=== PATIENT | male | born 1940 | race Caucasian/White ===

== ENCOUNTER 2019-01-03 10:19 | Emergency (ER) | payer MEDICARE, OTHER ==
[2019-01-03 10:43] VITALS: BMI 31.9
--- NOTE | 2019-01-03 10:49 | PDOC ---
History of Present Illness - General Chief Complaint: Vomiting/Diarrhea Stated Complaint: NAUSEOUS, DIARRHEA Time Seen by Provider: 01/03/19 10:49 History Source: Patient Exam Limitations: No Limitations - History of Present Illness Initial Comments: 01/03/19 11:00 78 year old male with PMH HTN, prediabetes, HLD, kidney stone, prostate CA presented to ED for nausea, vomiting, diarrhea since 1530 yesterday. Pt denied fever, abdominal pain, blood in stool. Pt stated he had 3 episodes of yellow/ clear vomit and 5-7 episodes of loose watery green/brown diarrhea today. Pt stated he is unable to hold down liquids. Pt stated he ate chicken soup for lunch yesterday prior to symptoms developing. Pt denied sick contacts. Allergies: NKDA Past History - Past Medical History Allergies/Adverse Reactions: Allergies Allergy/AdvReac Type Severity Reaction Status Date / Time No Known Allergies Allergy Verified 01/03/19 10:41 Home Medications: Ambulatory Orders Aspirin 81 mg PO DAILY 01/03/19 Cholecalciferol (Vitamin D3) [Vitamin D3] unit PO ASDIR 01/03/19 Glipizide [Glipizide ER] 2.5 mg PO DAILY 01/03/19 Hydrochlorothiazide [Hctz -] 12.5 mg PO DAILY 01/03/19 Olmesartan Medoxomil [Benicar (Nf)] 40 mg PO DAILY 01/03/19 Ondansetron [Zofran Odt -] 4 mg SL TID #9 od.tablet 01/03/19 Pravastatin Sodium [Pravachol (Nf)] 10 mg PO HS 01/03/19 COPD: No Diabetes: Yes HTN: Yes Hypercholesterolemia: Yes - Suicide/Smoking/Psychosocial Hx Smoking History: Unknown if ever smoked Review of Systems - Review of Systems Able to Perform ROS?: Yes Comments:: 01/03/19 11:02 General: denied fever, chills, night sweats, generalized weakness. HEENT: denied sore throat, rhinorrhea, ear pain. Heart: denied chest pain, palpitations, syncope, diaphoresis. Respiratory: denied shortness of breath, cough, sputum production, hemoptysis. Abdomen:admitted to nausea, vomiting, diarrhea. denied abdominal pain, constipation, blood in stool. : denied dysuria, increased urinary frequency, hematuria, urinary incontinence , flank pain. Back: denied back pain. Musculoskeletal: denied joint pain, muscle pain, joint swelling. Neurological: denied headache, dizziness, numbness, tingling, weakness. Skin: denied rash, laceration, abrasion. *Physical Exam - Vital Signs Last Vital Signs Temp Pulse Resp BP Pulse Ox 98.1 F 104 H 18 124/52 L 95 01/03/19 10:42 01/03/19 10:42 01/03/19 10:42 01/03/19 10:42 01/03/19 10:42 - Physical Exam Comments: 01/03/19 11:26 Constitutional: Well-nourished, Well-developed, appearing stated age. HEENT: head is normocephalic, atraumatic. EOMI. PERRLA. dry oral mucosa. no scleral icterus. Neck: supple. Full ROM. Heart: regular rhythm. no murmurs, rubs or gallops. Lungs: clear to auscultation bilaterally. no crackles, rhonchi or wheezing. no stridor. Abdomen: soft, nontender. normal bowel sounds. no rebound, guarding, masses. Extremities: Peripheral pulses intact. No lower extremity edema. Neurological: CN 2-12 grossly intact. Moves all four extremities. Psych: awake, alert, oriented x3. Follows commands. Answers questions appropriately. Skin: no jaundice. Moderate Sedation - Procedure Monitoring Vital Signs: Procedure Monitoring Vital Signs Temperature 98.1 F 01/03/19 10:42 Pulse Rate 104 H 01/03/19 10:42 Respiratory Rate 18 01/03/19 10:42 Blood Pressure 124/52 L 01/03/19 10:42 O2 Sat by Pulse Oximetry (%) 95 01/03/19 10:42 ED Treatment Course - LABORATORY CBC & Chemistry Diagram: 01/03/19 11:11 01/03/19 11:11 Medical Decision Making - Medical Decision Making 01/03/19 11:25 78 year old male with above PMH presented to ED for nausea, vomiting, diarrhea starting yesterday. Initial Vital Signs Temp Pulse Resp BP Pulse Ox 98.1 F 104 H 18 124/52 L 95 01/03/19 10:42 01/03/19 10:42 01/03/19 10:42 01/03/19 10:42 01/03/19 10:42 Afebrile. Mild tachycardia. No tachypnea. Mild diastolic hypotension. No hypoxia on room air. o Labs ordered: CBC, CMP, lipase, influenza A/B testing, lipase, mag, phos c Imaging ordered: none g Medications ordered: normal saline 1000 cc bolus, tylenol, zofran 4 mg 01/03/19 11:31 CBC WBC 8.6 K/mm3 (4.0-10.0) 01/03/19 11:11 RBC 5.07 M/mm3 (4.00-5.60) 01/03/19 11:11 Hgb 15.9 GM/dL (11.7-16.9) 01/03/19 11:11 Hct 46.1 % (35.4-49) 01/03/19 11:11 MCV 90.8 fl (80-96) 01/03/19 11:11 MCH 31.2 pg (25.7-33.7) 01/03/19 11:11 MCHC 34.4 g/dl (32.0-35.9) 01/03/19 11:11 RDW 15.1 % (11.9-15.9) 01/03/19 11:11 Plt Count 208 K/MM3 (134-434) 01/03/19 11:11 MPV 8.7 fl (7.5-11.1) 01/03/19 11:11 Absolute Neuts (auto) 7.5 K/mm3 (1.5-8.0) 01/03/19 11:11 Neutrophils % y 86.5 % (42.8-82.8) H 01/03/19 11:11 Lymphocytes % 6.8 % (8-40) L 01/03/19 11:11 Monocytes % 6.4 % (3.8-10.2) 01/03/19 11:11 Eosinophils % 0.0 % (0-4.5) 01/03/19 11:11 Basophils % 0.3 % (0-2.0) 01/03/19 11:11 Nucleated RBC % 0 % (0-0) 01/03/19 11:11 No leukocytosis. o Left shift. 01/03/19 11:46 Influenza A/B testing negative. 01/03/19 11:53 CMP Sodium 139 mmol/L (136-145) 01/03/19 11:11 Potassium 3.7 mmol/L (3.5-5.1) 01/03/19 11:11 Chloride 106 mmol/L (98-107) 01/03/19 11:11 Carbon Dioxide 24 mmol/L (21-32) 01/03/19 11:11 Anion Gap 9 MMOL/L (8-16) 01/03/19 11:11 BUN y 34 mg/dL (7-18) H 01/03/19 11:11 Creatinine 1.3 mg/dL (0.55-1.3) 01/03/19 11:11 Creat Clearance w eGFR 53.12 (>60) 01/03/19 11:11 Random Glucose 155 mg/dL (74-106) H 01/03/19 11:11 Calcium 8.7 mg/dL (8.5-10.1) 01/03/19 11:11 Phosphorus 4.5 mg/dL (2.5-4.9) 01/03/19 11:11 Magnesium 2.3 mg/dL (1.8-2.4) 01/03/19 11:11 Total Bilirubin y 1.1 mg/dL (0.2-1) H 01/03/19 11:11 AST y 207 U/L (15-37) H 01/03/19 11:11 ALT y 101 U/L (13-61) H 01/03/19 11:11 Alkaline Phosphatase 65 U/L (45-117) 01/03/19 11:11 Total Protein 7.5 g/dl (6.4-8.2) 01/03/19 11:11 Albumin 3.6 g/dl (3.4-5.0) 01/03/19 11:11 Lipase 223 U/L (73-393) 01/03/19 11:11 No electrolyte abnormalities. Mild hyperglycemia. o BUN/Cr = 26 - Pre renal - Pt is dehydrated, receiving fluids o Transaminitis. o Elevated total bilirubin. o Labs ordered: troponin, lactic acid c Imaging ordered: RUQ US 01/03/19 12:16 Pt informed of results, stated he was told he had some problem with his liver, but he is not sure what it is. PCP, Dr. Stephania miles. Pt reported improvement of nausea. 01/03/19 12:45 Troponin normal. 01/03/19 12:54 Dr. Stephania Barriga stated pt has fatty liver, is on statin and possibly medication for triglycerides. She recs DC of statin and triglyceride medication. informed to stop statin. I marked on her index card which medication to stop. No medication for treatment of hypertriglyceridemia on medication list. informed to bring all medicine bottles to PCP appointment. 01/03/19 13:31 c RUQ US Report: distended GB without wall thickening, no pericholecystic fluid , no stones. sludge noted. fatty liver noted vs hepatocellular disease. borderline dilation of the pancreatic duct at 2 mm. no sonographic evidence of acute cholecystitis. Pt reported no abdominal pain, nontender and soft on examination, murphys negative. Pt given PO juice challenge. 01/03/19 13:49 o Lactate 3.6 - Lab may have had had sample sitting for prolonged period of time - Will repeat g Medications ordered: normal saline bolus 1000 cc ED obs submitted. Vital Signs Temperature 98.0 F 01/03/19 13:58 Pulse Rate y 77 01/03/19 13:57 Respiratory Rate 20 01/03/19 13:57 Blood Pressure 120/63 01/03/19 13:57 O2 Sat by Pulse Oximetry (%) 95 01/03/19 13:57 y Tachycardia resolved. Afebrile. No hypotension. No hypoxia on room air. No tachypnea. Pending repeat lactate. 01/03/19 14:48 Pt tolerated PO juice and cracker challenge. Stated he would like to go home. 01/03/19 15:18 Lab called, stated there is only one lactic acid machine and that the sample is in the machine, but it is at the end of the line to be processed. Body Stylist could not give me a timeline for results. Lab likely sitting out and possibly could be a false positive. 01/03/19 15:25 Pt and informed of delay with lab. Pt stated he wants to go home. Pt advised to stay for result of lab, and if he wants to leave he will have to sign out AMA. Pt agreed to sign out AMA. Pt appears clinically well, ambulating unassisted. Normal vital signs. 01/04/19 12:04 y Repeat lactate 2.6 - Likely false positive due to delay in processing - Pt clinically appeared well, normal blood pressure, ambulating well unassisted *DC/Admit/Observation/Transfer Diagnosis at time of Disposition: Nausea vomiting and diarrhea, Dehydration, Transaminitis - Discharge Dispostion Disposition: AGAINST MEDICAL ADVICE Condition at time of disposition: Improved Decision to Admit order: Yes - Prescriptions Prescriptions: Ondansetron [Zofran Odt -] 4 mg SL TID #9 od.tablet - Referrals Referrals: Stephania Barriga MD [Primary Care Provider] - - Patient Instructions Printed Discharge Instructions: DI for Dehydration -- Adult, DI for Viral Gastroenteritis -- Adult, DI for Diarrhea and Traveler's Diarrhea -- Adult, DI for Vomiting -- Adult, DI for Nonalcoholic Fatty Liver Disease Additional Instructions: You were seen today for nausea, vomiting, diarrhea. Blood work: elevated liver enzymes. dehydration. Influenza A/B testing: negative Ultrasound: fatty liver. distended gall bladder with sludge. Follow up with your primary care doctor in 1-2 days. Take all paperwork given to you today to your appointment. 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 Take all paperwork given to you today to your appointment. STOP TAKING PRAVASTATIN IMMEDIATELY. Do not resume this medicine until you see Dr. Stephania Barriga. Bring all your prescription bottles to your appointment with her. I have sent a prescription for an anti-nausea medication called Zofran to your pharmacy. Take as advised on label when needed. Take Tylenol over the counter for fever/pain, take as advised on label. Drink lots of gatorade or pedialyte to replace the electrolytes you are losing in the diarrhea and vomit. Do not drink water alone. Diet: bread, rice, toast, applesauce for 1-2 days until you can tolerate heavier foods. Return to the Emergency Department for increasing pain, inability to hold down solids or liquids with Zofran use, fever >103F with Tylenol use, fever>5 days, chest pain, shortness of breath, lightheadedness like you may pass out, blood in stool, blood in vomit or any other new, worsening or concerning symptoms. - Post Discharge Activity Forms/Work/School Notes: Back to Work
[2019-01-03] MEDS ORDERED: ACETAMINOPHEN 1000 MG/100 ML VIAL (NON FORMULARY) IVPB ONE (10:58)
[2019-01-03] MEDS ORDERED: ONDANSETRON 4 MG/2 ML VIAL IVPUSH ONE (10:58)
[2019-01-03] MEDS ORDERED: SODIUM CHLORIDE 1,000 ML IV STA ×2 (10:58→13:46)
[2019-01-03] MEDS ORDERED: ONDANSETRON 4 MG/2 ML VIAL ONE (11:14)
[2019-01-03] MEDS ORDERED: ACETAMINOPHEN INJECTION 100 ML IVPB ONE (11:14)
[2019-01-03 11:24] LABS: BASO % 0.3 % (0-2.0); HEMATOCRIT 46.1 % (35.4-49); HEMOGLOBIN 15.9 GM/dL (11.7-16.9); LYMPH % 6.8 % (8-40); MCH 31.2 pg (25.7-33.7); MCHC 34.4 g/dl (32.0-35.9); MEAN CELL VOLUME 90.8 fl (80-96); MEAN PLT VOLUME 8.7 fl (7.5-11.1); MONO % 6.4 % (3.8-10.2); NEUT % 86.5 % (42.8-82.8); PLATELET COUNT 208 K/MM3 (134-434); RBC 5.07 M/mm3 (4.00-5.60); RDW 15.1 % (11.9-15.9); WHITE BLOOD COUNT 8.6 K/mm3 (4.0-10.0)
--- NOTE | 2019-01-03 11:42 | PDOC ---
Attending Attestation - Resident Resident Name: Saundra Cristobal - ED Attending Attestation I have performed the following: I have examined & evaluated the patient, The case was reviewed & discussed with the resident, I agree w/resident's findings & plan, Exceptions are as noted - HPI HPI: 01/03/19 11:41 78yo M hx pre-DM, HTN, HL, prostate ca, renal colic presents to the ED with N/V/ D since 3pm yesterday. Pt reports multiple epsiodes of NBNB emesis, diarrrhea NB today. No abd pain at any point, fevers, or chills. Denies headache, CP, SOB , focal weakness/numbness, urinary symptoms. No treatments tried. No sick contacts. No recent travel. Pt was on abx 2 months ago for UTI. States he has a liver problem but is not quite sure what it is. Pt states he also takes shots for prostate ca, last was 2 weeks ago. - Physicial Exam PE: 01/03/19 12:15 GENERAL: Awake, alert, and fully oriented, in no acute distress EYES: PERRLA, EOMI, sclera anicteric, conjunctiva clear ENT: Nares patent, oropharynx clear without exudates. Dry MM LUNGS: Breath sounds equal, clear to auscultation bilaterally. No wheezes, and no crackles HEART: Regular rate and rhythm, normal S1 and S2, no murmurs, rubs or gallops ABDOMEN: Soft, nontender, normoactive bowel sounds. No guarding, no rebound. No masses EXTREMITIES: Normal range of motion, no edema. No cords, erythema, or tenderness NEUROLOGICAL: Normal speech, cranial nerves intact, equal strength and sensation b/l SKIN: Warm, Dry, normal turgor, no rashes or lesions noted. - Medical Decision Making 01/03/19 12:16 78yo M hx DM, HTN, prostate ca, "liver problem" presents to the ED with 1 day of N/V/D. Vitals with mild tachycardia to 104, otherwise unremarkable. Exam with well appearing pt with dry MM and benign abd exam. Labs revealing of mildly elevated LFTs. DDx includes but not limited to viral syndrome vs cholecystitis. Plan -discuss case with Dr. Barriga -lactate, trop -RUQ US -IVF -reassess 01/03/19 15:[address] Barriga, pt has fatty liver US with sludge in GB but no evidence of acute cholecystitis Rpt abd exam benign Lactate came back 3.4, however tube was missing in labs and was not run for at least 1 hour after collection Pt very well appearing, no longer with dry MM after IVF Repeat lactic again in lab for >1hr after being drawn, elevated to 2.6 I suspect the lactate is falsely elevated 2/2 being run a long time after collection, however in light of infectious sxs, it is unclear Pt refusing to stay for further observation and rpt lactate Plan to sign pt out AMA The patient is clinically sober, free from distracting injury, appears to have intact insight and judgment and reason and in my opinion has the capacity to make decisions. The patient presents with diarrhea, found to have elevated lactate. I have explained that I am concerned that this may represent severe infection; he has verbalized an understanding of my concerns. I have discussed the need for further observation and repeat labs to make sure he does not hve a severe infection. I have told the patient that if he leaves, he could get much worse, could become critically ill, and could possibly become disabled or . I have discussed these concerns with the patients who is at the bedside and she is unable to convince him to stay for further evaluation. The patient is not willing to undergo an observation. He is refusing any further care and is leaving against medical advice. I am unable to convince the patient to stay, I have asked him to return as soon as possible to complete his evaluation. I have spoken with coverage for their primary care doctor Dr. Barriga in regards to their symptoms. I have answered all their questions.
[2019-01-03 11:49] LABS: ALBUMIN 3.6 g/dl (3.4-5.0); ALK PHOS 65 U/L (45-117); ANION GAP 9 MMOL/L (8-16); BILIRUBIN,TOTAL 1.1 mg/dL (0.2-1); BLOOD UREA NITROGEN 34 mg/dL (7-18); CALCIUM 8.7 mg/dL (8.5-10.1); CHLORIDE 106 mmol/L (98-107); CO2 24 mmol/L (21-32); CREATININE 1.3 mg/dL (0.55-1.3); GLUCOSE,RANDOM 155 mg/dL (74-106); LIPASE 223 U/L (73-393); MAGNESIUM 2.3 mg/dL (1.8-2.4); PHOSPHOROUS 4.5 mg/dL (2.5-4.9); POTASSIUM 3.7 mmol/L (3.5-5.1); SGOT/AST 207 U/L (15-37); SGPT/ALT 101 U/L (13-61); SODIUM 139 mmol/L (136-145); TOT PROT 7.5 g/dl (6.4-8.2)
[2019-01-03 13:58] VITALS: BP 120/63; PULSE 77; TEMP 98
== END 2019-01-03 16:00 | disposition left against medical advice (07) ==
LOC: JER 10:19
PROC: 3E0337Z Introduction of Electrolytic and Water Balance Substance into Peripheral Vein, Percutaneous Approach (ICD-10-PCS; principal; 2019-01-03)
PROC: 3E033GC Introduction of Other Therapeutic Substance into Peripheral Vein, Percutaneous Approach (ICD-10-PCS; 2019-01-03)
DX: E86.0 Dehydration (principal); R74.0 Nonspecific elevation of levels of transaminase and lactic acid dehydrogenase [LDH]; R79.89 Other specified abnormal findings of blood chemistry; I10 Essential (primary) hypertension; E11.9 Type 2 diabetes mellitus without complications; Z79.84 Long term (current) use of oral hypoglycemic drugs; E78.5 Hyperlipidemia, unspecified; Z87.442 Personal history of urinary calculi; Z85.46 Personal history of malignant neoplasm of prostate
CPT/HCPCS: 36415; 76705-TC; 80053; 83605; 83690; 83735; 84100; 84484; 85025; 87804; 99283-25; J0131; J7030